=== PATIENT | female | born 1945 | race Caucasian/White ===

== ENCOUNTER 2016-07-12 21:13 | Inpatient (IN) | payer MEDICARE, OTHER ==
[~2016-07-12] VITALS: Ht 165.1 cm; Wt 71.6 kg
[~2016-07-12 21:13] MED LIST: CIPRO 500MG TA500 MG PO; COMPAZINE 110 MG/TAB PO; MAG-OX 400400 MG/TAB PO; NEURONTIN100 MG/CAP PO; TOPROL XL 50MG50 MG PO; TYLENOL 500MG500 MG PO; ZOFRAN8 MG PO
[2016-07-12 21:54] LABS: MEAN CELL VOLUME 95 fl (80.0-100.0); MEAN CORPUSCULAR HGB CONC 33 g/dl (33.0-37.0); MEAN PLATELET VOLUME 10.2 fl (7.4-10.4); PLATELET COUNT 118 K/mm3 (130-400); RED BLOOD COUNT 3.13 M/mm3 (4.10-5.30); REDCELL DISTRIBUTION WIDTH-CV 15.1 % (11.5-14.5); WHITE BLOOD COUNT 4.5 K/mm3 (4.8-10.8)
[2016-07-12 21:55] LABS: ADD PATHOLOGY DIFF REVIEW NO; HEMATOCRIT 29.8 % (37.0-47.0); HEMOGLOBIN 9.9 g/dl (12.5-16.0); MEAN CORPUSCULAR HEMOGLOBIN 32 pg (27.0-31.0)
[2016-07-12 22:05] LABS: ADJUSTED CALCIUM 9.6 mg/dL (8.4-10.2); ALBUMIN 3.5 gm/dL (3.5-5.0); BAND 1 % (0-10); BILIRUBIN,TOTAL 0.7 mg/dL (0.0-1.0); CALCIUM 9.2 mg/dL (8.4-10.2); CREATININE, serum 0.81 mg/dL (0.52-1.25); METAMYELOCYTE 2 % (0-0); NEUTROPHILS 74 % (42.0-75.2); POTASSIUM 3.4 mmol/L (3.4-5.0); TOTAL CELLS COUNTED 100
[2016-07-12 22:07] LABS: ANISOCYTOSIS 1+; MICROCYTOSIS 1+; OVALOCYTES 1+; POIKILOCYTOSIS 1+; SPHEROCYTE 1+
[2016-07-12 22:28] LABS: PH 7 (5-8); SQUAMOUS EPITHELIAL 0-2 /hpf; URINE APPEARANCE Hazy; URINE BACTERIA None Seen /hpf; URINE BILIRUBIN Negative (NEGATIVE); URINE BLOOD Negative (NEGATIVE); URINE COLOR Yellow; URINE GLUCOSE Negative (NEGATIVE); URINE KETONE 2+ (NEGATIVE); URINE UROBILINOGEN Negative (NEGATIVE); URINE WBC 20-50 /hpf
[2016-07-12 22:32] VITALS: BP 151/63; PULSE 73; TEMP 98.6
[2016-07-13 01:23] VITALS: BP 141/67; PULSE 86; TEMP 97.5
[2016-07-13 06:16] VITALS: BP 111/65; PULSE 94; TEMP 97.5
[2016-07-13 10:13] VITALS: BP 133/55; PULSE 65; TEMP 97.8
[2016-07-13 14:00] VITALS: BP 131/61; PULSE 83; TEMP 97.2
[2016-07-13 18:03] VITALS: BP 125/65; PULSE 90; TEMP 97
[2016-07-13 22:41] VITALS: BP 134/65; PULSE 83; TEMP 98.3
[2016-07-14 00:49] VITALS: BP 135/60; PULSE 82; TEMP 98
[2016-07-14 06:34] VITALS: BP 132/55; PULSE 90; TEMP 98.4
[2016-07-14 09:48] VITALS: BP 139/66; PULSE 82; TEMP 98.5
[2016-07-14 14:09] VITALS: BP 133/63; PULSE 87; TEMP 98.2
[2016-07-14 18:07] VITALS: BP 134/64; PULSE 74; TEMP 97.7
[2016-07-14 22:52] VITALS: BP 138/79; PULSE 79; TEMP 98.2
[2016-07-15 02:02] VITALS: BP 127/61; PULSE 81; TEMP 98
[2016-07-15 06:16] VITALS: BP 140/68; PULSE 70; TEMP 98.2
[2016-07-15 06:32] LABS: MEAN CELL VOLUME 97 fl (80.0-100.0); MEAN CORPUSCULAR HGB CONC 33 g/dl (33.0-37.0); MEAN PLATELET VOLUME 10.2 fl (7.4-10.4); PLATELET COUNT 97 K/mm3 (130-400); REDCELL DISTRIBUTION WIDTH-CV 15.5 % (11.5-14.5)
[2016-07-15 06:37] LABS: ADD PATHOLOGY DIFF REVIEW NO; HEMATOCRIT 26.1 % (37.0-47.0); HEMOGLOBIN 8.5 g/dl (12.5-16.0); MEAN CORPUSCULAR HEMOGLOBIN 31 pg (27.0-31.0); WHITE BLOOD COUNT 1.3 K/mm3 (4.8-10.8)
[2016-07-15 06:58] LABS: CALCIUM 8.1 mg/dL (8.4-10.2); CREATININE, serum 0.76 mg/dL (0.52-1.25); POTASSIUM 3.2 mmol/L (3.4-5.0)
[2016-07-15 08:10] LABS: BAND 10 % (0-10); BASOPHIL 2 % (0-2); EOSINOPHIL 2 % (0-4); NEUTROPHILS 32 % (42.0-75.2)
[2016-07-15 08:11] LABS: PLATELET ESTIMATE DECREASED (NORMAL); TOTAL CELLS COUNTED 50
[2016-07-15 09:28] VITALS: BP 131/66; PULSE 80; TEMP 97.7
[2016-07-15 13:28] VITALS: BP 126/58; PULSE 68; TEMP 98.5
[2016-07-15] MEDS ORDERED: DIFLUCAN150 MG PO (14:38)
[2016-07-15] MEDS ORDERED: KLOR-CON M2020 MEQ PO (14:46)
== END 2016-07-15 18:02 | disposition home or self-care (01) | DRG 389 ==
LOC: COL.ER 21:13 → SURG 21:41
PROVIDERS: Emergency Medicine; Family Medicine
DX: K56.60 Unspecified intestinal obstruction (principal); C56.9 Malignant neoplasm of unspecified ovary; N39.0 Urinary tract infection, site not specified; I10 Essential (primary) hypertension; E11.40 Type 2 diabetes mellitus with diabetic neuropathy, unspecified; E87.6 Hypokalemia; Z92.3 Personal history of irradiation
CPT/HCPCS: OP; 99222-AI; 99232-AI; 99239; C9113; G0378; G8978-GP; G8979-GP; J0744; J1170; J1644; J1650; J2405; J3010; J7030; Q9967

== ENCOUNTER 2016-07-26 08:42 | Inpatient (IN) | payer MEDICARE, OTHER ==
[~2016-07-26] VITALS: Ht 165.1 cm; Wt 67.3 kg
[~2016-07-26 08:42] MED LIST changes: +DIFLUCAN150 MG PO; +KLOR-CON M2020 MEQ PO
[2016-07-26 09:37] LABS: BASO % 0.3 % (0.0-2.0); EOS % 0.7 % (0-4.0); GRAN # 1.9 (1.4-6.5); GRAN % 63.2 % (42.2-75.2); LYMPH # 0.6 (1.2-3.4); LYMPH % 19.4 % (20.0-51.0); MEAN CELL VOLUME 96 fl (80.0-100.0); MEAN CORPUSCULAR HGB CONC 33 g/dl (33.0-37.0); MEAN PLATELET VOLUME 9.4 fl (7.4-10.4); MONO # 0.5 (0.1-0.6); MONO % 16.1 % (1.7-9.3); PLATELET COUNT 371 K/mm3 (130-400); RED BLOOD COUNT 3.57 M/mm3 (4.10-5.30); REDCELL DISTRIBUTION WIDTH-CV 15.6 % (11.5-14.5)
[2016-07-26 09:43] LABS: HEMATOCRIT 34.1 % (37.0-47.0); HEMOGLOBIN 11.4 g/dl (12.5-16.0); MEAN CORPUSCULAR HEMOGLOBIN 32 pg (27.0-31.0)
[2016-07-26 09:47] LABS: INR 1.2 (0.8-3.0); PROTHROMBIN TIME 12.9 SECONDS (9.7-12.8)
[2016-07-26 09:59] LABS: ADJUSTED CALCIUM 9.2 mg/dL (8.4-10.2); ALANINE AMINOTRANSFERASE 44 U/L (9-52); ALBUMIN 4.1 gm/dL (3.5-5.0); ALKALINE PHOSPHATASE 84 U/L (50-136); ANION GAP 14 mmol/L (7-16); BILIRUBIN,TOTAL 1.1 mg/dL (0.0-1.0); BLOOD UREA NITROGEN 21 mg/dL (7-17); C-REACTIVE PROTEIN < 0.5 mg/dL (0.0-0.9); CALCIUM 9.3 mg/dL (8.4-10.2); CARBON DIOXIDE 22 mmol/L (22-30); CHLORIDE 99 mmol/L (98-107); GLUCOSE 124 mg/dL (74-106); LIPASE 57 U/L (23-300); POTASSIUM 3.6 mmol/L (3.4-5.0); SODIUM 135 mmol/L (137-145); TOTAL PROTEIN 7.8 gm/dL (6.4-8.2)
[2016-07-26 10:11] LABS: TROPONIN-I < 0.012 ng/mL (0.000-0.034)
[2016-07-26 10:20] LABS: PH 5 (5-8); URINE APPEARANCE Hazy; URINE BACTERIA Rare /hpf; URINE BILIRUBIN Negative (NEGATIVE); URINE BLOOD 2+ (NEGATIVE); URINE COLOR Yellow; URINE GLUCOSE Negative (NEGATIVE); URINE KETONE 2+ (NEGATIVE); URINE RBC 20-50 /hpf; URINE UROBILINOGEN Negative (NEGATIVE); URINE WBC 20-50 /hpf
[2016-07-26 13:41] VITALS: BP 132/65; PULSE 89; TEMP 98
[2016-07-26 15:52] VITALS: BP 126/68; PULSE 72; TEMP 98.3
[2016-07-26 20:23] VITALS: BP 139/65; PULSE 87; TEMP 98.1
[2016-07-27] VITALS (7 sets, daily range): BP systolic 127–147; BP diastolic 47–70; PULSE 74–98; TEMP 97.3–98.6
[2016-07-27 07:57] LABS: HEMATOCRIT 27.5 % (37.0-47.0); HEMOGLOBIN 8.8 g/dl (12.5-16.0); MEAN CELL VOLUME 100 fl (80.0-100.0); MEAN CORPUSCULAR HEMOGLOBIN 32 pg (27.0-31.0); MEAN CORPUSCULAR HGB CONC 32 g/dl (33.0-37.0); MEAN PLATELET VOLUME 9.4 fl (7.4-10.4); PLATELET COUNT 310 K/mm3 (130-400); RED BLOOD COUNT 2.76 M/mm3 (4.10-5.30); REDCELL DISTRIBUTION WIDTH-CV 15.9 % (11.5-14.5); WHITE BLOOD COUNT 2.1 K/mm3 (4.8-10.8)
[2016-07-27 08:08] LABS: CREATININE, serum 0.72 mg/dL (0.52-1.25); POTASSIUM 3.7 mmol/L (3.4-5.0)
[2016-07-28 03:22] VITALS: BP 142/67; PULSE 83; TEMP 98.5
[2016-07-28 07:36] VITALS: BP 145/65; PULSE 74; TEMP 98.4
[2016-07-28 12:45] VITALS: BP 145/64; PULSE 86; TEMP 98.6
[2016-07-28 15:51] VITALS: BP 119/73; PULSE 96; TEMP 98.3
[2016-07-28 19:15] VITALS: BP 129/61; PULSE 90; TEMP 99
[2016-07-28 22:44] VITALS: BP 146/66; PULSE 89; TEMP 98.3
[2016-07-29 02:56] VITALS: BP 151/78; PULSE 87; TEMP 98.2
[2016-07-29 06:41] LABS: MEAN CELL VOLUME 98 fl (80.0-100.0); MEAN CORPUSCULAR HGB CONC 33 g/dl (33.0-37.0); MEAN PLATELET VOLUME 9.5 fl (7.4-10.4); PLATELET COUNT 343 K/mm3 (130-400); REDCELL DISTRIBUTION WIDTH-CV 15.6 % (11.5-14.5); WHITE BLOOD COUNT 2.3 K/mm3 (4.8-10.8)
[2016-07-29 06:52] LABS: HEMATOCRIT 28.3 % (37.0-47.0); HEMOGLOBIN 9.3 g/dl (12.5-16.0); MEAN CORPUSCULAR HEMOGLOBIN 32 pg (27.0-31.0)
[2016-07-29 06:53] LABS: CALCIUM 8.7 mg/dL (8.4-10.2); CREATININE, serum 0.77 mg/dL (0.52-1.25); POTASSIUM 3.2 mmol/L (3.4-5.0)
[2016-07-29 07:51] VITALS: BP 136/67; PULSE 83; TEMP 98.3
[2016-07-29] MEDS ORDERED: VANCOCIN H125 MG/CAP PO (11:03)
[2016-07-29 11:37] VITALS: BP 129/60; PULSE 88; TEMP 98.3
[2016-07-29 15:28] LABS: PH 5 (5-8); URINE APPEARANCE Hazy; URINE BACTERIA Rare /hpf; URINE BILIRUBIN Negative (NEGATIVE); URINE BLOOD 1+ (NEGATIVE); URINE COLOR Yellow; URINE GLUCOSE Negative (NEGATIVE); URINE KETONE Negative (NEGATIVE); URINE UROBILINOGEN Negative (NEGATIVE); URINE WBC >50 /hpf
== END 2016-07-29 15:52 | disposition hospice, home (50) | DRG 388 ==
LOC: COL.ER 08:42 → MEDICAL 11:12
PROVIDERS: Emergency Medicine; Internal Medicine; Internal Medicine Infectious Disease
DX: K56.60 Unspecified intestinal obstruction (principal); D61.810 Antineoplastic chemotherapy induced pancytopenia; A04.7 Enterocolitis due to Clostridium difficile; N39.0 Urinary tract infection, site not specified; C56.2 Malignant neoplasm of left ovary; C79.9 Secondary malignant neoplasm of unspecified site; Z51.5 Encounter for palliative care; E87.6 Hypokalemia; I10 Essential (primary) hypertension; E11.42 Type 2 diabetes mellitus with diabetic polyneuropathy; B95.7 Other staphylococcus as the cause of diseases classified elsewhere; E11.649 Type 2 diabetes mellitus with hypoglycemia without coma
CPT/HCPCS: 99223-AI; 99232-AI; 99239; C9113; J1644; J1650; J1956; J2270; J2405; J7030; Q9967